=== PATIENT | male | born 1995 | race Caucasian/White ===

== ENCOUNTER 2016-10-11 21:48 | Emergency (ER) | payer MEDICAID ==
--- NOTE | 2016-10-11 22:14 | C.PDOC ---
History Of Present Illness Patient gave a history of recurrent left anterior lower chest area pain for a few days. Chief Complaint (Nursing): Chest Pain History Per: Patient History/Exam Limitations: no limitations Onset/Duration Of Symptoms: Days Current Symptoms Are (Timing): Still Present Severity: Mild Pain Scale Rating Of: 2 Quality: Sharp Exacerbating Factors: Turning, Movement, Other (palpation) Alleviating Factors: None Recent travel outside of the [place]: No Additional History Per: Patient Past Medical History Reviewed: Historical Data, Nursing Documentation, Vital Signs Vital Signs: Last Vital Signs Temp 97.4 F L 10/11/16 21:54 Pulse 70 10/11/16 22:00 Resp 16 10/11/16 21:54 BP 131/77 10/11/16 21:54 Pulse Ox 98 10/11/16 23:21 - Medical History PMH: No Chronic Diseases Surgical History: Appendectomy Family History: States: Unknown Family Hx - Social History Hx Alcohol Use: Yes Hx Substance Use: No - Immunization History Hx Tetanus Toxoid Vaccination: No Hx Influenza Vaccination: No Hx Pneumococcal Vaccination: No Review Of Systems Except As Marked, All Systems Reviewed And Found Negative. Constitutional: Negative for: Fever, Chills Cardiovascular: Positive for: Chest Pain. Negative for: Palpitations, Light Headedness Respiratory: Negative for: Cough, Shortness of Breath Gastrointestinal: Negative for: Nausea, Vomiting Neurological: Negative for: Headache, Dizziness Physical Exam - Physical Exam Appears: Well, Non-toxic, No Acute Distress Skin: Normal Color Eye(s): bilateral: Normal Inspection, PERRL, EOMI Nose: Normal Throat: Normal Neck: Normal Chest: Symmetrical, No Deformity, Tenderness (anterior left lower chest area), No Ecchymosis, No Subcutaneous Emphysema Cardiovascular: Rhythm Regular Respiratory: Normal Breath Sounds Gastrointestinal/Abdominal: Normal Exam Back: Normal Inspection Extremity: Normal ROM ED Course And Treatment - Laboratory Results Result Diagrams: 10/11/16 22:30 10/11/16 22:30 ECG: Interpreted By Me, Viewed By Me ECG Rhythm: Sinus Rhythm, R BBB ECG Interpretation: No Acute Changes Interpretation Of ECG: NSR, IRBBB, No acute change Rate From EC O2 Sat by Pulse Oximetry: 98 Pulse Ox Interpretation: Normal - Radiology CXR: Interpreted by Me, Viewed By Me CXR Interpretation: Yes: No Acute Disease, Other (nhormal chest film). No: Infiltrates Disposition Counseled Patient/Family Regarding: Diagnosis - Disposition Referrals: [facility] [Outside] Disposition: HOME/ ROUTINE Disposition Time: 23:22 Condition: STABLE Prescriptions: Naproxen [Naprosyn Tab] 375 mg PO TIDPC #20 tab Instructions: Chest Wall Pain (ED) - POA Present On Arrival: None - Clinical Impression Clinical Impression: Chest wall pain, Non-cardiac chest pain
[2016-10-11 22:46] LABS: BASO % 0.8 % (0.0-2.0); EOS # 0.1 K/uL (0.0-0.7); EOS % 1.8 % (0.0-4.0); HEMOGLOBIN 14.5 g/dL (12.0-18.0); LYMPH # 3.6 K/uL (1.0-4.3); LYMPH % 63.2 % (20.0-40.0); MEAN CELL VOLUME 79.3 fL (80.0-94.0); MEAN CORPUSCULAR HEMOGLOBIN 24.9 pg (27.0-31.0); MEAN CORPUSCULAR HGB CONC 31.4 g/dL (33.0-37.0); MONO # 0.6 K/uL (0.0-0.8); MONO % 10.4 % (0.0-10.0); NEUT # 1.4 K/uL (1.8-7.0); NEUT % 23.8 % (50.0-75.0); NRBC % 0.3 % (0.0-2.0); RBC 5.82 Mil/uL (4.40-5.90); RED CELL DISTRIBUTION WIDTH 14.7 % (11.5-14.5); WHITE BLOOD COUNT 5.7 K/uL (4.8-10.8)
[2016-10-11 22:47] LABS: ALBUMIN 4.2 g/dL (3.5-5.0)
[2016-10-11 22:49] LABS: AST/SGOT 20 U/L (17-59); GFR AFRICAN-AMERICAN > 60; GFR NON-AFRICAN AMERICAN > 60
[2016-10-11 22:50] LABS: ALB/GLOB RATIO 1.3 (1.0-2.1); ALT/SGPT 30 U/L (21-72); BLOOD UREA NITROGEN 18 mg/dL (9-20); CALCIUM 9.2 mg/dl (8.6-10.4)
[2016-10-11 23:37] VITALS: BP 105/69; PULSE 75; RESP 20; TEMP 98.5; O2SAT 99
--- NOTE | 2016-10-12 09:53 | RAD ---
HISTORY: chest pain COMPARISON: No prior. TECHNIQUE: Chest PA and lateral FINDINGS: LUNGS: No active pulmonary disease. PLEURA: No significant pleural effusion identified. No pneumothorax apparent. CARDIOVASCULAR: Normal. OSSEOUS STRUCTURES: No significant abnormalities. VISUALIZED UPPER ABDOMEN: Normal. OTHER FINDINGS: None. IMPRESSION: No active disease.
--- NOTE | 2016-10-13 00:25 | CARD ---
APPROVED REPORT EKG Measurement Heart [id number] MA 170P33 [id number] <Conclusion> Normal sinus rhythm Incomplete right bundle branch block Borderline ECG
== END 2016-10-11 23:35 | disposition home or self-care (01) ==
LOC: C.ER 21:48
DX: R07.89 Other chest pain (principal)
CPT/HCPCS: 71020; 80053; 84484; 85025; 96374; 99284; J1885

== ENCOUNTER 2016-10-14 03:34 | Emergency (ER) | payer MEDICAID | END 2016-10-14 03:54 | disposition left against medical advice (07) | LOC: C.ER 03:34 | DX: R07.9 Chest pain, unspecified (principal); Z02.9 Encounter for administrative examinations, unspecified ==

== ENCOUNTER 2016-12-12 22:31 | Emergency (ER) | payer MEDICAID | END 2016-12-12 23:30 | disposition left against medical advice (07) | LOC: C.ER 22:31 | DX: Z02.89 Encounter for other administrative examinations (principal); R10.9 Unspecified abdominal pain ==

== ENCOUNTER 2017-01-16 21:02 | Emergency (ER) | payer MEDICAID ==
[2017-01-16 21:10] VITALS: BP 118/76; PULSE 100; RESP 20; TEMP 98.2; O2SAT 99
--- NOTE | 2017-01-16 21:25 | C.PDOC ---
History Of Present Illness The patient is a 21yo male, presents to the ED for evaluation of productive cough, for the past 1 week. Patient reports nasal congestion for the past 5 months and has been using a nasal spray as prescribed by his PCP. He also reports noticing chest tightness after coughing, which caused him concern and prompted the visit today. Patient also had an additional complaint of right 5th digit pain after he "jammed" it against a basketball two days. Patient offers no other medical complaints. Time Seen by Provider: 01/16/17 21:12 Chief Complaint (Nursing): Cough, Cold, Congestion History Per: Patient History/Exam Limitations: no limitations Onset/Duration Of Symptoms: Days Current Symptoms Are (Timing): Still Present Past Medical History Reviewed: Historical Data, Nursing Documentation, Vital Signs Vital Signs: Last Vital Signs Temp 98.2 F 01/16/17 21:06 Pulse 100 H 01/16/17 21:06 Resp 20 01/16/17 21:06 BP 118/76 01/16/17 21:06 Pulse Ox 99 01/16/17 22:08 - Medical History PMH: No Chronic Diseases Surgical History: No Surg Hx, Appendectomy Family History: States: No Known Family Hx, Unknown Family Hx - Social History Hx Alcohol Use: Yes Hx Substance Use: No - Immunization History Hx Tetanus Toxoid Vaccination: No Hx Influenza Vaccination: No Hx Pneumococcal Vaccination: No Review Of Systems ENT: Positive for: Nose Congestion Cardiovascular: Positive for: Chest Pain Respiratory: Positive for: Cough, Sputum Physical Exam - Physical Exam Appears: Non-toxic, No Acute Distress Skin: Warm, Dry Nose: Normal Oral Mucosa: Moist Neck: Normal ROM, Supple Cardiovascular: Rhythm Regular Respiratory: Normal Breath Sounds, No Decreased Breath Sounds, No Accessory Muscle Use, No Wheezing Extremity: Tenderness (tenderness to PIP of right 5th digit), Capillary Refill ( < 2 seconds), No Deformity, No Swelling ED Course And Treatment O2 Sat by Pulse Oximetry: 99 (RA) Pulse Ox Interpretation: Normal Progress Note: Pt is in no respiratory distress, conversing and laughing with friend at bedside , VSS. PE unremarkable. Pt will follow up with PMD. Return precautions discussed and understood by pt Medical Decision Making Medical Decision Making: XR Right hand ordered Disposition Counseled Patient/Family Regarding: Diagnosis, Need For Followup, Rx Given - Disposition Referrals: Jann Linares MD [Medical Doctor] - Disposition: HOME/ ROUTINE Disposition Time: 21:23 Condition: STABLE Additional Instructions: Increase PO fluids Take meds as directed Wear finger splint for support Return to ER if worse Prescriptions: Benzonatate [Tessalon Perles] 100 mg PO TID #20 sgl Cetirizine HCl [Zyrtec] 10 mg PO DAILY #20 capsule Ibuprofen [Motrin] 600 mg PO Q6H #20 tab Instructions: Upper Respiratory Infection (ED), Finger Sprain (ED) Forms: [employer] (Trinidadian) - Clinical Impression Clinical Impression: Sprain of finger, right, Upper respiratory infection - PA / MEAL TEMPERER / Resident Statement MD/DO has reviewed & agrees with the documentation as recorded. - Scribe Statement The provider has reviewed the documentation as recorded by the Beau Sher Provider Attestation All medical record entries made by the Beau were at my direction and personally dictated by me. I have reviewed the chart and agree that the record accurately reflects my personal performance of the history, physical exam, medical decision making, and the department course for this patient. I have also personally directed, reviewed, and agree with the discharge instructions and disposition.
--- NOTE | 2017-01-17 07:29 | RAD ---
PROCEDURE: Right small finger radiographs. HISTORY: slammed against ball COMPARISON: None. TECHNIQUE: AP radiograph of the right hand, as well as spot oblique and lateral images of small finger were obtained. FINDINGS: RIGHT SMALL FINGER: Normal right small finger, without fracture or focal lesion. Remainder of the right hand (as seen on the AP view) grossly unremarkable. JOINTS: Normal. SOFT TISSUES: Normal. OTHER FINDINGS: None. IMPRESSION: Normal right small finger radiographs.
== END 2017-01-16 22:12 | disposition home or self-care (01) ==
LOC: C.ER 21:02
DX: J06.9 Acute upper respiratory infection, unspecified (principal); S63.636A Sprain of interphalangeal joint of right little finger, initial encounter; W23.0XXA Caught, crushed, jammed, or pinched between moving objects, initial encounter; Y93.67 Activity, basketball; Y92.89 Other specified places as the place of occurrence of the external cause

== ENCOUNTER 2017-01-26 22:42 | Emergency (ER) | payer MEDICAID ==
[2017-01-26 22:51] VITALS: BP 95/62; PULSE 68; RESP 18; TEMP 98.4; O2SAT 98
--- NOTE | 2017-01-26 23:03 | C.PDOC ---
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 Denies weakness, numbness, or other injuries. Time Seen by Provider: 01/26/17 22:58 Chief Complaint (Nursing): Finger,Hand,&Wrist History Per: Patient History/Exam Limitations: no limitations Onset/Duration Of Symptoms: Mins Current Symptoms Are (Timing): Still Present Exacerbating Factor(s): Nothing Recent travel outside of the [place]: No Past Medical History Reviewed: Historical Data, Nursing Documentation, Vital Signs Vital Signs: Last Vital Signs Temp 98.4 F 01/26/17 22:49 Pulse 68 01/26/17 22:49 Resp 18 01/26/17 22:49 BP 95/62 L 01/26/17 22:49 Pulse Ox 98 01/27/17 00:03 - Medical History PMH: No Chronic Diseases Surgical History: Appendectomy Family History: States: Unknown Family Hx - Social History Hx Alcohol Use: No Hx Substance Use: No - Immunization History Hx Tetanus Toxoid Vaccination: No Hx Influenza Vaccination: No Hx Pneumococcal Vaccination: No Review Of Systems Musculoskeletal: Positive for: Hand Pain Neurological: Negative for: Weakness, Numbness Physical Exam - Physical Exam Appears: Non-toxic, No Acute Distress Skin: Normal Color, Warm, Dry Head: Atraumatic, Normacephalic Eye(s): bilateral: Normal Inspection Extremity: Normal ROM (Of left hand, elbow, and shoulder.), Tenderness (Mild to volar aspect of left wrist. No snuffbox tenderness.), Capillary Refill (<2 seconds), No Deformity, No Swelling, Other (Left elbow, forearm, and fingers all normal) Pulses: Left Radial: Normal, Right Radial: Normal Neurological/Psych: Oriented x3, Normal Speech, Normal Cognition, Normal Motor, Normal Sensation ED Course And Treatment O2 Sat by Pulse Oximetry: 98 (Room air) Pulse Ox Interpretation: Normal - Other Rad Left wrist x-ray X-Ray: Interpreted by Me, Viewed By Me Interpretation: No acute fractures or dislocations. Medical Decision Making Medical Decision Making: Motrin administered. Left wrist x-ray ordered. On reevaluation, patient reports pain has much improved, patient discharge with instructions to follow up with PMD in 1-2 days. Velcro wrist splint was applied Disposition - Disposition Referrals: Aliza Galvan MD [Staff Provider] - Disposition: HOME/ ROUTINE Disposition Time: 23:54 Condition: GOOD Additional Instructions: Follow up with the medical doctor within 1-2 days. return if worsened. Prescriptions: Ibuprofen [Motrin] 600 mg PO TID #21 tab Instructions: Wrist Sprain (ED) Forms: [employer] (Togolese), Work Excuse - Clinical Impression Clinical Impression: Wrist sprain - Scribe Statement The provider has reviewed the documentation as recorded by the Scribbaltazar Parson All medical record entries made by the Marcioibe were at my direction and personally dictated by me. I have reviewed the chart and agree that the record accurately reflects my personal performance of the history, physical exam, medical decision making, and the department course for this patient. I have also personally directed, reviewed, and agree with the discharge instructions and disposition.
--- NOTE | 2017-01-27 10:15 | RAD ---
Left wrist four views History: Wrist injury and pain. Comparison: None available. Findings: Negative ulnar variance. No evidence for acute displaced fracture or dislocation. Impression: Negative ulnar variance. If pain persists, consider MRI.
== END 2017-01-27 00:15 | disposition home or self-care (01) ==
LOC: C.ER 22:42
DX: S63.502A Unspecified sprain of left wrist, initial encounter (principal); W01.0XXA Fall on same level from slipping, tripping and stumbling without subsequent striking against object, initial encounter

== ENCOUNTER 2017-03-04 18:57 | Emergency (ER) | payer MEDICAID ==
[2017-03-04 19:09] VITALS: BP 124/74; PULSE 78; RESP 16; TEMP 98.2; O2SAT 98
--- NOTE | 2017-03-04 20:01 | C.PDOC ---
History Of Present Illness 22yo male, presents to ED with complaints of nasal congestion and "allergies" for the past 1.5 years. Patient states he presents today because he was not able to breathe from his nose. He states he took Zyrtec for his symptoms with no relief. Of note, patient states he has not visited his PCP for his symptoms. He denies any shortness of breath, and offers no other medical complaints. PCP: Dr. Linares Time Seen by Provider: 03/04/17 19:45 Chief Complaint (Nursing): Cough, Cold, Congestion History Per: Patient History/Exam Limitations: no limitations Onset/Duration Of Symptoms: Persistent Current Symptoms Are (Timing): Still Present Location Of Pain: Sinus/es Associated Symptoms: Sinus Drainage, Nasal Congestion Past Medical History Reviewed: Historical Data, Nursing Documentation, Vital Signs Vital Signs: Last Vital Signs Temp 98.2 F 03/04/17 19:06 Pulse 78 03/04/17 19:06 Resp 16 03/04/17 19:06 BP 124/74 03/04/17 19:06 Pulse Ox 98 03/04/17 20:12 - Medical History PMH: No Chronic Diseases Surgical History: Appendectomy Family History: States: No Known Family Hx, Unknown Family Hx - Social History Hx Alcohol Use: No Hx Substance Use: No - Immunization History Hx Tetanus Toxoid Vaccination: No Hx Influenza Vaccination: No Hx Pneumococcal Vaccination: No Review Of Systems ENT: Positive for: Nose Discharge, Nose Congestion Respiratory: Negative for: Shortness of Breath Physical Exam - Physical Exam Appears: Well, Non-toxic, No Acute Distress Skin: Normal Color Eye(s): bilateral: Normal Inspection Nose: Normal, No Deformity, No Tenderness, No Septal Hematoma Throat: Normal, No Erythema Neck: Normal ROM Respiratory: Normal Breath Sounds, No Wheezing Neurological/Psych: Oriented x3 ED Course And Treatment O2 Sat by Pulse Oximetry: 98 (RA) Pulse Ox Interpretation: Normal Medical Decision Making Medical Decision Making: Plan: -- Informed patient to use home therapies such as a humidifier or a neti-pot to help with sinus congestion. Also advised to follow up with his PCP for a referral to an pacs specialist. Disposition - Disposition Disposition: HOME/ ROUTINE Disposition Time: 20:01 Condition: STABLE Additional Instructions: Take meds as directed Please follow up with your doctor Prescriptions: Cetirizine HCl [Zyrtec] 10 mg PO DAILY #30 capsule Mometasone Furoate [Nasonex] 2 spray NS DAILY #1 bottle Instructions: Allergic Rhinitis (ED) Forms: [employer] (Tajik) - Clinical Impression Clinical Impression: Allergic rhinitis - PA / ENCEPHALOGRAPHER / Resident Statement MD/DO has reviewed & agrees with the documentation as recorded. - Scribe Statement The provider has reviewed the documentation as recorded by the Marcioibe Rita Sher Provider Attestation: All medical record entries made by the Marcioibbaltazar were at my direction and personally dictated by me. I have reviewed the chart and agree that the record accurately reflects my personal performance of the history, physical exam, medical decision making, and the department course for this patient. I have also personally directed, reviewed, and agree with the discharge instructions and disposition.
--- NOTE | 2017-03-04 20:04 | C.PDOC ---
Time Seen by Provider: 03/04/17 19:45 Chief Complaint (Nursing): Cough, Cold, Congestion Past Medical History Vital Signs: Last Vital Signs Temp 98.2 F 03/04/17 19:06 Pulse 78 03/04/17 19:06 Resp 16 03/04/17 19:06 BP 124/74 03/04/17 19:06 Pulse Ox 98 03/04/17 20:05 Surgical History: Appendectomy Family History: States: Unknown Family Hx - Social History Hx Alcohol Use: No Hx Substance Use: No - Immunization History Hx Tetanus Toxoid Vaccination: No Hx Influenza Vaccination: No Hx Pneumococcal Vaccination: No ED Course And Treatment O2 Sat by Pulse Oximetry: 98 Disposition Counseled Patient/Family Regarding: Diagnosis, Need For Followup, Rx Given - Disposition Disposition: HOME/ ROUTINE Disposition Time: 20:01 Condition: STABLE Additional Instructions: Take meds as directed Please follow up with your doctor Prescriptions: Cetirizine HCl [Zyrtec] 10 mg PO DAILY #30 capsule Mometasone Furoate [Nasonex] 2 spray NS DAILY #1 bottle Instructions: Allergic Rhinitis (ED) Forms: [employer] (Belgian) - Clinical Impression Clinical Impression: Allergic rhinitis
--- NOTE | 2017-03-05 23:13 | CARD ---
APPROVED REPORT EKG Measurement Heart [id number] CA 144P64 [id number] <Conclusion> Normal sinus rhythm Normal ECG
== END 2017-03-04 20:13 | disposition home or self-care (01) ==
LOC: C.ER 18:57
DX: J30.9 Allergic rhinitis, unspecified (principal)

== ENCOUNTER 2017-03-26 17:31 | Emergency (ER) | payer MEDICAID ==
[2017-03-26 17:35] VITALS: BP 121/77; PULSE 71; RESP 18; TEMP 98; O2SAT 99
--- NOTE | 2017-03-26 17:49 | C.PDOC ---
History Of Present Illness 22 year old male with no significant PMHx presents to the Ed with complaints of bottom right dental pain for 4 days. Patient reports he has been taking Ibuprofen and Percocet given to him by his mother with no relief of symptoms. Patient has been taking Naproxen 500 mg every 6 hours and gargling with warm salt water. Patient denies fever, chills, headache, or other complaints at this time. Time Seen by Provider: 03/26/17 17:40 Chief Complaint (Nursing): Dental Pain History Per: Patient History/Exam Limitations: no limitations Onset/Duration Of Symptoms: Days (4 days ) Current Symptoms Are (Timing): Still Present Quality: Positive for: "Pain" Recent travel outside of the [place]: No Past Medical History Reviewed: Historical Data, Nursing Documentation, Vital Signs Vital Signs: Last Vital Signs Temp 98 F 03/26/17 17:34 Pulse 71 03/26/17 17:34 Resp 18 03/26/17 17:34 BP 121/77 03/26/17 17:34 Pulse Ox 99 03/26/17 21:35 Surgical History: Appendectomy Family History: States: Unknown Family Hx - Social History Hx Alcohol Use: No Hx Substance Use: No - Immunization History Hx Tetanus Toxoid Vaccination: No Hx Influenza Vaccination: No Hx Pneumococcal Vaccination: No Review Of Systems Constitutional: Negative for: Fever, Chills ENT: Positive for: Other (dental pain) Neurological: Negative for: Headache Physical Exam - Physical Exam Appears: Non-toxic, No Acute Distress Skin: Warm, Dry, No Rash Head: Atraumatic, Normacephalic Eye(s): bilateral: Normal Inspection Ear(s): Bilateral: Normal Nose: No Discharge Oral Mucosa: Moist Tongue: Normal Appearing Lips: Normal Appearing Teeth: Tender To Palpation (of right lower rearmost tooth, lateral aspect with gum overlying, tender, mild swelling ) Gingiva: Bleeding (lower posterior right) Throat: Normal, No Erythema, No Exudate Neck: Supple Lymphatic: No Adenopathy Neurological/Psych: Oriented x3, Normal Speech, Normal Cognition ED Course And Treatment O2 Sat by Pulse Oximetry: 99 (RA) Pulse Ox Interpretation: Normal Progress Note: Patient was given Tylenol and amoxicillin. Medical Decision Making Medical Decision Making: pt with dental pain in rear most molar/wisdom tooth, overlying tender gum tissue , will start on amoxiicillin, tylenol and f.u dental tomorrow. Disposition - Disposition Disposition: HOME/ ROUTINE Disposition Time: 18:12 Condition: STABLE Additional Instructions: Please follow up with dentist tomorrow. Take antibiotics as prescribed, take naproxen as prescribed. Use oragel. Take Tylenol as prescribed. Cold compresses to face. Prescriptions: Acetaminophen [Tylenol 325mg tab] 650 mg PO Q6 #30 tab Amoxicillin [Amoxil 500 mg Cap] 500 mg PO TID #21 cap Instructions: Toothache (ED) Forms: [facility] (Slovenian), General Discharge Instructions - Clinical Impression Clinical Impression: Toothache - PA / DISEASE EDUCATION SPECIALIST / Resident Statement MD/DO has reviewed & agrees with the documentation as recorded. - Scribe Statement The provider has reviewed the documentation as recorded by the Scribe Norah Platt All medical record entries made by the Marcioibbaltazar were at my direction and personally dictated by me. I have reviewed the chart and agree that the record accurately reflects my personal performance of the history, physical exam, medical decision making, and the department course for this patient. I have also personally directed, reviewed, and agree with the discharge instructions and disposition.
== END 2017-03-26 18:42 | disposition home or self-care (01) ==
LOC: C.ER 17:31
DX: K08.89 Other specified disorders of teeth and supporting structures (principal)

== ENCOUNTER 2017-05-05 11:35 | Emergency (ER) | payer SELFPAY ==
[2017-05-05 11:46] VITALS: BP 114/73; PULSE 90; RESP 18; TEMP 98.8; O2SAT 98
--- NOTE | 2017-05-05 12:17 | C.PDOC ---
History Of Present Illness 22 y/o male presents complaining of nasal congestion, productive cough for 4 days. States when he coughs a lot his chest feels tight. No fever. Has been using nasal spray for allergies, with no relief of symptoms. PMD: None Time Seen by Provider: 05/05/17 11:55 Chief Complaint (Nursing): Cough, Cold, Congestion History Per: Patient History/Exam Limitations: no limitations Onset/Duration Of Symptoms: Days (x4) Current Symptoms Are (Timing): Still Present Past Medical History Reviewed: Historical Data, Nursing Documentation, Vital Signs Vital Signs: Last Vital Signs Temp 98.8 F 05/05/17 11:44 Pulse 90 05/05/17 11:44 Resp 18 05/05/17 11:44 BP 114/73 05/05/17 11:44 Pulse Ox 98 05/05/17 12:24 - Medical History PMH: No Chronic Diseases Surgical History: Appendectomy Family History: States: Unknown Family Hx - Social History Hx Alcohol Use: No Hx Substance Use: No - Immunization History Hx Tetanus Toxoid Vaccination: No Hx Influenza Vaccination: No Hx Pneumococcal Vaccination: No Review Of Systems Except As Marked, All Systems Reviewed And Found Negative. Constitutional: Negative for: Fever, Chills ENT: Positive for: Nose Congestion Cardiovascular: Positive for: Chest Pain (with excessive coughing) Respiratory: Positive for: Cough. Negative for: Shortness of Breath Physical Exam - Physical Exam Appears: Non-toxic, No Acute Distress Skin: Normal Color, Warm, Dry Head: Atraumatic, Normacephalic Eye(s): bilateral: Normal Inspection, PERRL, EOMI Nose: Discharge Oral Mucosa: Moist Throat: Normal, No Erythema, No Exudate Neck: Normal ROM, Supple Chest: Symmetrical Cardiovascular: Rhythm Regular Respiratory: No Accessory Muscle Use, No Wheezing, Other (occasional cough noted ) Gastrointestinal/Abdominal: Soft, No Tenderness Extremity: Normal ROM Neurological/Psych: Oriented x3, Normal Speech ED Course And Treatment O2 Sat by Pulse Oximetry: 98 (RA) Pulse Ox Interpretation: Normal - Radiology CXR: Interpreted by Me, Viewed By Me CXR Interpretation: Yes: No Acute Disease Progress Note: Labuterol ordered. PERC negative. Pulse ox WNL. On reassessment, patient is resting comfortably with no wheezing, chest pain, or retractions. Oxygen saturation has improved. Patient is alert and oriented x 3. Patient was instructed to follow up with physician/clinic in 1-2 days for further evaluation or return to ED if symptoms persist or worsen. Will d/c with rxs for Tamiflu, inhaler, and mucinex Disposition Counseled Patient/Family Regarding: Studies Performed, Diagnosis, Need For Followup, Rx Given - Disposition Disposition: HOME/ ROUTINE Disposition Time: 12:14 Condition: STABLE Additional Instructions: Follow up with your PMD in 1-2 days. Return to ER if symptoms persist or worsen. 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 - Scribe Statement The provider has reviewed the documentation as recorded by the Scribe (Radha Velez) All medical record entries made by the Scribe were at my direction and personally dictated by me. I have reviewed the chart and agree that the record accurately reflects my personal performance of the history, physical exam, medical decision making, and the department course for this patient. I have also personally directed, reviewed, and agree with the discharge instructions and disposition.
[2017-05-05] MEDS ORDERED: Albuterol 0.083% Inhal Sol (2.5 mg/3 mL) UD IH STA (12:36)
[2017-05-05] MEDS ORDERED: Albuterol 0.083% Inhal Sol (2.5 mg/3 mL) UD ONE (12:39)
--- NOTE | 2017-05-05 12:54 | RAD ---
HISTORY: URI COMPARISON: Comparison chest dated 10/11/2016 TECHNIQUE: Chest PA and lateral FINDINGS: LUNGS: Mild bibasilar atelectasis. PLEURA: No significant pleural effusion identified. No pneumothorax apparent. CARDIOVASCULAR: Normal. OSSEOUS STRUCTURES: No significant abnormalities. VISUALIZED UPPER ABDOMEN: Normal. OTHER FINDINGS: None. IMPRESSION: Mild bibasilar atelectasis
--- NOTE | 2017-05-09 12:16 | CARD ---
APPROVED REPORT EKG Measurement Heart [id number] VA 150P68 [id number] <Conclusion> Normal sinus rhythm Normal ECG
== END 2017-05-05 13:05 | disposition home or self-care (01) ==
LOC: C.ER 11:35
DX: J06.9 Acute upper respiratory infection, unspecified (principal)

== ENCOUNTER 2017-06-14 17:13 | Emergency (ER) | payer MEDICAID ==
[2017-06-14 17:36] VITALS: RESP 18
--- NOTE | 2017-06-14 18:46 | C.PDOC ---
History Of Present Illness Patient is a 22 year old male with no past medical history who presents Time Seen by Provider: 06/14/17 18:24 Chief Complaint (Nursing): Abdominal Pain Past Medical History Vital Signs: Last Vital Signs Temp 98.5 F 06/14/17 17:32 Pulse 94 H 06/14/17 17:32 Resp 18 06/14/17 17:32 BP 135/71 06/14/17 17:32 Pulse Ox 97 06/14/17 17:32 Surgical History: Appendectomy Family History: States: Unknown Family Hx - Social History Hx Alcohol Use: Yes Hx Substance Use: No - Immunization History Hx Tetanus Toxoid Vaccination: No Hx Influenza Vaccination: Yes Hx Pneumococcal Vaccination: No ED Course And Treatment O2 Sat by Pulse Oximetry: 97 Disposition - Disposition
--- NOTE | 2017-06-14 18:59 | C.PDOC ---
History Of Present Illness Patient is a 22 year old past medical hi Time Seen by Provider: 06/14/17 18:24 Chief Complaint (Nursing): Abdominal Pain Past Medical History Vital Signs: Last Vital Signs Temp 98.5 F 06/14/17 17:32 Pulse 94 H 06/14/17 17:32 Resp 18 06/14/17 17:32 BP 135/71 06/14/17 17:32 Pulse Ox 97 06/14/17 18:46 Surgical History: Appendectomy Family History: States: Unknown Family Hx - Social History Hx Alcohol Use: Yes Hx Substance Use: No - Immunization History Hx Tetanus Toxoid Vaccination: No Hx Influenza Vaccination: Yes Hx Pneumococcal Vaccination: No ED Course And Treatment O2 Sat by Pulse Oximetry: 97 Disposition - Disposition Forms: [employer] [facility] (Indonesian)
[2017-06-14 19:03] LABS: URINE BACTERIA OCC (<OCC); URINE BILIRUBIN NEGATIVE (NEGATIVE); URINE BLOOD NEGATIVE (NEGATIVE); URINE CLARITY Clear (Clear); URINE COLOR Yellow (YELLOW); URINE GLUCOSE (UA) NORMAL (Normal); URINE LEUKOCYTE ESTERASE NEG Leu/uL (Negative); URINE PROTEIN NEGATIVE (NEGATIVE)
[2017-06-14 19:09] LABS: BASO % 0.9 % (0.0-2.0); EOS # 0.1 K/uL (0.0-0.7); EOS % 2.2 % (0.0-4.0); HEMOGLOBIN 14.8 g/dL (12.0-18.0); LYMPH # 2.9 K/uL (1.0-4.3); LYMPH % 58.2 % (20.0-40.0); MEAN CELL VOLUME 78.4 fL (80.0-94.0); MEAN CORPUSCULAR HEMOGLOBIN 26.3 pg (27.0-31.0); MEAN CORPUSCULAR HGB CONC 33.5 g/dL (33.0-37.0); MEAN PLATELET VOLUME 8.2 fL (7.2-11.7); MONO # 0.5 K/uL (0.0-0.8); MONO % 9.6 % (0.0-10.0); NEUT # 1.4 K/uL (1.8-7.0); NEUT % 29.1 % (50.0-75.0); NRBC % 0.1 % (0.0-2.0); RBC 5.64 Mil/uL (4.40-5.90); RED CELL DISTRIBUTION WIDTH 14.2 % (11.5-14.5)
--- NOTE | 2017-06-14 19:10 | C.PDOC ---
History Of Present Illness <Regina Woody - Last Filed: 06/14/17 21:19> <JakobCuriel M - Last Filed: 06/14/17 21:28> Patient is a 22 year old with no past medical history who presents to the ED with complaints of right lower quadrant that started yesterday while he was walking. Patient describes the pain as a squeezing pain and he was unable to walk and was unable to stand up straight. Patient denies fever, chills, nausea, vomiting, diarrhea, constipation, headache, chest pain and palpitation. Patient has a history [place] (2011[place] [facility] (Martita Woodyhéctor Debo) History Per: Patient History/Exam Limitations: no limitations Onset/Duration Of Symptoms: Days Current Symptoms Are (Timing): Still Present Severity: Mild Pain Scale Rating Of: 3 Location: Right lower quadrant pain Recent travel outside of the [place]: No Additional History Per: Patient <Regina Woody - Last Filed: 06/14/17 21:19> <JakobCuriel M - Last Filed: 06/14/17 21:28> Time Seen by Provider: 06/14/17 18:24 Chief Complaint (Nursing): Abdominal Pain Past Medical History Surgical History: Appendectomy Family History: States: Unknown Family Hx - Social History Hx Tobacco Use: No Hx Alcohol Use: Yes (Socially) Hx Substance Use: No - Immunization History Hx Tetanus Toxoid Vaccination: No Hx Influenza Vaccination: Yes Hx Pneumococcal Vaccination: No <Regina Woody - Last Filed: 06/14/17 21:19> Vital Signs: Last Vital Signs Temp 98.5 F 06/14/17 17:32 Pulse 94 H 06/14/17 17:32 Resp 18 06/14/17 17:32 BP 135/71 06/14/17 17:32 Pulse Ox 97 06/14/17 21:25 Review Of Systems Constitutional: Negative for: Fever, Chills, Sweats, Weakness Eyes: Negative for: Pain, Vision Change ENT: Negative for: Ear Pain, Ear Discharge Cardiovascular: Negative for: Chest Pain, Palpitations, Orthopnea, Edema, Light Headedness Respiratory: Negative for: Shortness of Breath Gastrointestinal: Positive for: Abdominal Pain (Right lower abdominal). Negative for: Nausea, Vomiting, Constipation, Hematochezia, Hematemesis Genitourinary: Negative for: Dysuria, Frequency, Hematuria, Penile Discharge Musculoskeletal: Negative for: Back Pain Skin: Negative for: Rash Neurological: Negative for: Weakness, Confusion, Dizziness Psych: Negative for: Anxiety, Depression <WoodstockNicolesohéctor E - Last Filed: 06/14/17 21:19> Physical Exam - Physical Exam Appears: No Acute Distress Skin: Normal Color Head: Atraumatic, Normacephalic Eye(s): bilateral: Normal Inspection, PERRL, EOMI Oral Mucosa: Moist, No Drooling, No Trismus Tongue: Normal Appearing Lips: Normal Appearing Teeth: Normal Dentition Chest: Symmetrical Cardiovascular: Rhythm Regular, Murmur Respiratory: Normal Breath Sounds, No Decreased Breath Sounds, No Accessory Muscle Use, No Rales, No Rhonchi Gastrointestinal/Abdominal: Normal Exam, Bowel Sounds, Soft, Tenderness (RLQ tenderness ) Back: Normal Inspection, No CVA Tenderness Extremity: Normal ROM, No Tenderness, No Pedal Edema, No Calf Tenderness Extremity: Bilateral: Atraumatic Neurological/Psych: Oriented x3, Normal Speech, Normal Cognition, Normal Cranial Nerves <Nicole Woodysola E - Last Filed: 06/14/17 21:19> ED Course And Treatment - Laboratory Results Result Diagrams: 06/14/17 19:06 06/14/17 19:06 Lab Interpretation: Normal O2 Sat by Pulse Oximetry: 97 <BongNicolesohéctor E - Last Filed: 06/14/17 21:19> - Laboratory Results Result Diagrams: 06/14/17 19:06 06/14/17 19:06 <Moisés Robert M - Last Filed: 06/14/17 21:28> Medical Decision Making <BongNicolekiara E - Last Filed: 06/14/17 21:19> <Moisés Robert M - Last Filed: 06/14/17 21:28> Medical Decision Making: CT abdomen/Pelvis: No acute findings within the abdomen and pelvis. Constipation is seen. No evidence for bowel obstruction (Regina Woody) Disposition Discussed With : Moisés Robert - Disposition Disposition Time: 21:21 <Regina Woody E - Last Filed: 06/14/17 21:19> <Moisés Robert M - Last Filed: 06/14/17 21:28> - Disposition Referrals: Edwin Taveras MD [Staff Provider] - Disposition: HOME/ ROUTINE Condition: GOOD Additional Instructions: Please discharge patient home Please take miralax daily Please increase water and fiber intake Please follow up with your primary care physician, Dr. John in 2 days Please return to the the ED if symptoms worsens or resumes Prescriptions: Polyethylene Glycol 3350 [Miralax] 17 gm PO DAILY #5 ml Instructions: Constipation in Adults, Acute Abdomen (Belly Pain) Forms: [employer] [facility] (Tajik), General Discharge Instructions - Clinical Impression Clinical Impression: Right lower quadrant abdominal pain, Constipation, Abdominal pain
[2017-06-14 19:21] LABS: ALB/GLOB RATIO 1.2 (1.0-2.1); ALBUMIN 4.2 g/dL (3.5-5.0); ALT/SGPT 30 U/L (21-72); AST/SGOT 20 U/L (17-59); BLOOD UREA NITROGEN 17 mg/dL (9-20); CALCIUM 8.8 mg/dl (8.6-10.4); GFR AFRICAN-AMERICAN > 60; GFR NON-AFRICAN AMERICAN > 60; LIPASE 72 U/L (23-300)
[2017-06-14] MEDS ORDERED: Iodixanol 320 MG/ML 100 ML BOTTLE IV ONE (19:32)
[2017-06-14 21:40] VITALS: BP 132/77; PULSE 77; TEMP 98.1; O2SAT 98
--- NOTE | 2017-06-15 08:34 | CT ---
PROCEDURE: CT Abdomen and Pelvis with contrast HISTORY: Right lower quadrant pain COMPARISON: None available TECHNIQUE: Contrast dose: 100 mL Visipaque IV Radiation dose: Total exam DLP = 352.02 mGy-cm. This CT exam was performed using one or more of the following dose reduction techniques: Automated exposure control, adjustment of the mA and/or kV according to patient size, and/or use of iterative reconstruction technique. FINDINGS: LOWER THORAX: No visible consolidation, pleural effusion, or pneumothorax. LIVER: Unremarkable. GALLBLADDER AND BILE DUCTS: Contracted gallbladder appears otherwise unremarkable. PANCREAS: Unremarkable. SPLEEN: Unremarkable. ADRENALS: Unremarkable. KIDNEYS AND URETERS: The kidneys enhance symmetrically. No hydronephrosis or obstructing calculus identified. VASCULATURE: No aortic aneurysm. BOWEL: Stomach is nondistended. Lack of oral contrast limits evaluation for bowel pathology. Bowel loops appear within normal limits of caliber without evidence of obstruction. Small bowel wall thickening noted in the mid to left upper quadrant, nonspecific; correlate clinically for possibility of enteritis. Moderate constipation. APPENDIX: The appendix is not identified; clip is noted at the base of the cecum. Correlate for appendectomy. PERITONEUM: No significant free fluid. No definite free air. LYMPH NODES: No bulky adenopathy identified. BLADDER: Unremarkable. REPRODUCTIVE: Unremarkable. BONES: No acute osseous abnormality is detected. OTHER FINDINGS: None. IMPRESSION: Small bowel wall thickening noted in the mid to left upper quadrant, nonspecific; correlate clinically for possibility of enteritis. Moderate constipation. Otherwise unremarkable study as above. Preliminary impression was provided by virtual radiologic. Study marked for PA review.
== END 2017-06-14 21:40 | disposition home or self-care (01) ==
LOC: C.ER 17:13
DX: K59.00 Constipation, unspecified (principal); R10.31 Right lower quadrant pain
CPT/HCPCS: 74177; 80053; 81001; 83690; 85025; 99285; Q9967